=== PATIENT | male | born 1960 | race Caucasian/White ===

== ENCOUNTER 2017-07-15 07:14 | Day surgery (SDC) | payer BC, SELFPAY ==
--- NOTE | 2017-07-15 | IMM_PTH ---
PATIENT: HARLEY EAGLE LOC: EN U#:[id number] AGE/SX: 57/M ROOM: RE07/15/[address]: Dr. Dakotah Simon MD : 1960 BED: DIS: 07/15/2017 SPEC #: [id number] RECD: 07/16/17 10:55 STATUS: JAMMIE REErick #: [id number] JARET: 07/15/17 00:[address]: Dakotah Simon DEPT: IMMUNOHISTOCHEMISTRY RECD BY: Monica Walker ENTERED: 07/16/17 10:56 SP TYPE: IMMUNO OTHR DR: No Primary Care Phys Tissues: Sigmoid colon biopsy Procedures: MSH2 (add) MLH-1 (add) MSH6 (add) Anti-PMS2 (add) ASCENCIO-2 (add) P53 (add) KI-67 (initial) PHYSICIAN & INSTITUTION [place] [id number] SPECIMEN INFORMATION: Tissue Source: A ? Sigmoid polyp at 25 cm Clinical Info: History colon polyps Specimen Number: [id number] CPT code: 71567, 54800 x6 METHODOLOGY: Deparaffinized sections of prefer/formalin-fixed tissue or PAP/DQ stained slides are incubated with monoclonal/polyclonal antibodies/oligonucleotide probes. Localization is made via biotin free immunoperoxidase method. Appropriate controls are performed and reacted as expected. Results on target cell population are indicated in the following table: RESULTS: ANTIBODY / CLONE RESULT Block A COLON CANCER PROFILE (Prognostic Markers) Ki-67 (30-9) positive P53 (DO-7) positive MSH2 (25D12) positive MSH6 (44) positive MLH-1 (M1) positive PMS2 (MUQ3878) positive ASCENCIO-2 (SP21) positive These tests were developed and their performance characteristics determined by [facility]. They may not have been cleared or approved by the [place] Food and Drug Administration. The FDA has determined that such clearance or approval is not necessary. INTERPRETATION: A. 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 Result of Microsatellite Instability Study: Negative (no loss of mismatch protein; no microsatellite instability detected). SJ:luz 07/19/17
--- NOTE | 2017-07-15 | COLBX_PTH ---
PATIENT: HRALEY EAGLE LOC: EN U#:[id number] AGE/SX: 57/M ROOM: RE07/15/[address]: Dr. Dakotah Simon MD : 1960 BED: DIS: 07/15/2017 SPEC #: [id number] RECD: 07/15/17 09:35 STATUS: JAMMIE KASIE #: [id number] JARET: 07/15/17 00:[address]: Dakotah Simon DEPT: SURGICAL PATHOLOGY RECD BY: America Meyer ENTERED: 07/15/17 11:03 SP TYPE: COLON BX OT DR: No Primary Care Phys Tissues: A - Sigmoid colon biopsy B - Transverse colon Procedures: Surgery Specimen Level IV HEADER OPERATION: Colonoscopy PRE-OP DIAGNOSIS: History colon polyps TISSUE SUBMITTED: A. Sigmoid polyp at 25 cm, B. Transverse colon polyp (mid transverse) MICROSCOPIC DIAGNOSIS A. 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 See cancer summary below. B. Transverse colon polyp, biopsy: Fragments of tubular adenoma. COLON AND RECTAL POLYP CANCER SUMMARY: Tumor site ? sigmoid colon Specimen integrity - intact Polyp size ? 1.2 x 1 x 0.7 cm Polyp configuration - sessile Size of invasive carcinoma ? 0.4 x 0.4 cm (measured microscopically) Histologic type ? adenocarcinoma Histologic grade ? low grade (well differentiated) Microscopic tumor extension - submucosa Margins ? margins uninvolved by invasive carcinoma. The invasive adenocarcinoma is 0.4 cm away from the base of the polyp. Lymph-Vascular invasion ? not identified Type of polyp in which invasive carcinoma arose ? tubular adenoma with high grade dysplasia. Additional pathologic findings - none Ancillary studies: Microsatellite instability study by IHC ([id number]): Negative (no loss of mismatch protein; no microsatellite instability detected). Immunohistochemistry Studies for Mismatch Repair Proteins: MLH1 - Intact nuclear positivity, tumor cells MSH2 - Intact nuclear positivity, tumor cells MSH6 - Intact nuclear positivity, tumor cells PMS2 - Intact nuclear positivity, tumor cells The above summary is in compliance with [employer] (CAP) Cancer Protocols Checklist and [place] Joint Committee on Cancer (AJCC), Staging Manual, 7th Ed. SJ:rg 07/16/17 COMMENT Case has been reviewed in consultation with Dr. Thurston who concurs with the above diagnosis. IDC:AM MICROSCOPIC DESCRIPTION Slides are reviewed. GROSS DESCRIPTION A - Received in fixative is one container labeled with the patient's name and designated sigmoid polyp at 25 cm. The specimen consists of a pink-red polyp measuring 1.2 x 1 x 0.7 cm. The apparent base is inked. The polyp is bisected and submitted entirely in one cassette. B - Received in fixative is one container labeled with the patient's name and designated transverse polyp. The specimen consists of multiple irregular fragments of light meza soft tissue that in aggregate measure 1 x 0.8 x 0.3 cm. The specimen is totally submitted in one cassette. / SJ:rg 07/15/17 TC:0 CPT: 05159 x2
[2017-07-15 07:44] VITALS: BP 151/112; PULSE 110; RESP 18; TEMP 36.2; O2SAT 100; BMI 33.7
[2017-07-15 09:13] VITALS: BP 134/102; BP 151/112; PULSE 96; RESP 16; TEMP 36.9; O2SAT 94
--- NOTE | 2017-07-15 09:13 | OP.PCM_ITS ---
Operative Report Date of Procedure: 07/15/17 Preop diagnosis: [History of colon polyps high risk screening colonoscopy] Postop diagnosis: [Colonoscopy with snare polypectomy ?2 2 polyps removed from the colon today] Anesthesia: Via the MAC] Instrument:[Olympus adjustable pediatric colonoscope] Informed consent was taken prior to procedure. The patient was brought to the endoscopy suite and placed in the left shoulder down. Anesthesia provided the MAC. Rectal exam was performed prior to inserting the scope. The colonoscope was passed into the rectum was normal. At 25 cm was a sessile polyp with a short stalk was grounded using a hot snare the polyp was transected and brought on the tip of the colonoscope. The scope was reintroduced back into the colon stasis of the polypectomy site up into the descending colon and across the transverse colon mucosa was normal near the mid transverse colon was a broad- based sessile polyp using a hot snare was completely excised and sucked up with the colonoscope. The scope was advanced to the hepatic flexure and on the right colon the base the cecum was photographed the patient had an excellent preparation. Backup the right colon there were no large polyps seen transverse colon there were no large polyps noted.. Below the splenic flexure and down to the left colon there is some scattered diverticuli there were no other large polyps noted. Retroflexion performed the rectum showed internal hemorrhoids the colon was decompressed and tolerated procedure well. Impression: History of colon polyps 2 sessile polyps removed today one from the sigmoid another from the mid transverse colon Plan: Follow the pathology of the polyps repeat a colonoscopy in 3 years
[2017-07-15 09:15] VITALS: BP 141/102; BP 151/112; PULSE 91; RESP 16; O2SAT 94
[2017-07-15 09:20] VITALS: BP 145/101; BP 151/112; PULSE 93; RESP 16; O2SAT 95
[2017-07-15 09:25] VITALS: BP 135/101; BP 151/112; PULSE 86; RESP 16; TEMP 36.4; O2SAT 94
[2017-07-15 10:00] VITALS: BP 151/112
== END 2017-07-15 10:03 | disposition home or self-care (01) ==
LOC: EN 07:15
PROVIDERS: Visit Provider Internal Medicine Gastroenterology
PROC: 0DJD8ZZ Inspection of Lower Intestinal Tract, Via Natural or Artificial Opening Endoscopic (ICD-10-PCS; CPT 45378; principal; 2017-07-15 08:25)
DX: Z12.11 Encounter for screening for malignant neoplasm of colon (principal); C18.7 Malignant neoplasm of sigmoid colon; D12.3 Benign neoplasm of transverse colon; I10 Essential (primary) hypertension; E78.5 Hyperlipidemia, unspecified; K21.9 Gastro-esophageal reflux disease without esophagitis; Z86.010 Personal history of colon polyps; Z87.891 Personal history of nicotine dependence
CPT/HCPCS: 45385; 88305; 88341; 88342; J7120